=== PATIENT | female | born 1960 | race American Indian/Alaskan Native ===

== ENCOUNTER 2022-02-23 05:57 | Emergency (ER) | payer SELFPAY ==
[2022-02-23 07:29] LABS: Bilirubin,Urine NEG (Negative); Blood,Urine NEG (Negative); Color,Urine Yellow (Yellow); Protein,Urine <15 mg/dL mg/dL (Negative); Urobilinogen,Urine < 2.0 mg/dL (<2.0)
[2022-02-23 07:42] LABS: Basophils # (Auto) 0.1 K/mm3 (0.0-0.1); Eosinophils # (Auto) 0.1 K/mm3 (0.0-0.4); Eosinophils % (Auto) 0.8 % (0.0-4.3); Hematocrit 41.4 % (30.3-42.9); Hemoglobin 13.9 gm/dl (10.1-14.3); Lymphocytes # (Auto) 1.2 K/mm3 (1.2-5.4); Lymphocytes % (Auto) 19.1 % (13.4-35.0); Mean Corpuscular HGB Conc 34 % (30-34); Mean Corpuscular Volume 91 fl (79-97); Monocytes # (Auto) 0.7 K/mm3 (0.0-0.8); Monocytes % (Auto) 10.9 % (0.0-7.3); Platelet Count 370 K/mm3 (140-440); Red Blood Count 4.53 M/mm3 (3.65-5.03)
[2022-02-23 08:02] LABS: Alanine Aminotransferase 41 units/L (7-56); Albumin 4.7 g/dL (3.9-5); Blood Urea Nitrogen 13 mg/dL (7-17); Calcium 9.5 mg/dL (8.4-10.2); Hemolysis Index 9
[2022-02-23 08:23] LABS: BUN/Creatinine Ratio 19
--- NOTE | 2022-02-23 10:10 | Emergency Department Report ---
ED Abdominal Pain HPI - General Chief Complaint: Abdominal Pain Stated Complaint: ABDOMINAL PAIN Time Seen by Provider: 02/23/22 09:04 Source: patient Mode of arrival: Stretcher Limitations: No Limitations - History of Present Illness Initial Comments: 61-year-old female who presents with diffuse abdominal pain that started 2 days ago progressively getting worse. Abdominal pain is associated with nonbloody diarrhea for the same amount of time. Diarrhea started after eating home grilled chicken by patient's son 2 days ago. Diarrhea was described as being large. Patient also reports some nausea and bloody emesis this morning. No fever or chills reported. No other modifying or associated factors reported. MD Complaint: abdominal pain Severity scale (0 -10): 6 - Related Data Previous Rx's Medication Instructions Recorded Last Taken Type Omeprazole Magnesium [PriLOSEC Otc] 20 mg PO BID 30 Days #60 tab 02/23/22 Unknown Rx Ondansetron [Zofran Odt] 4 mg PO Q8HR 5 Days #15 tab.rapdis 02/23/22 Unknown Rx Allergies Allergy/AdvReac Type Severity Reaction Status Date / Time acetaminophen [From Tylenol] Allergy Itching Verified 02/23/22 06:43 latex Allergy Itching Verified 02/23/22 06:42 NSAIDS (Non-Steroidal Allergy Hives Verified 02/23/22 06:42 Anti-Inflamma ED Review of Systems ROS: Stated complaint: ABDOMINAL PAIN Other details as noted in HPI Comment: All other systems reviewed and negative Gastrointestinal: abdominal pain, nausea, diarrhea. denies: vomiting ED Past Medical Hx - Past Medical History Previous Medical History?: Yes Hx Hypertension: Yes Additional medical history: Neuropathy - Surgical History Past Surgical History?: No - Social History Smoking Status: Never Smoker Substance Use Type: None - Medications Home Medications: Home Medications Medication Instructions Recorded Confirmed Last Taken Type Omeprazole Magnesium [PriLOSEC Otc] 20 mg PO BID 30 Days #60 tab 02/23/22 Unknown Rx Ondansetron [Zofran Odt] 4 mg PO Q8HR 5 Days #15 tab.rapdis 02/23/22 Unknown Rx ED Physical Exam - General Limitations: No Limitations - Head Head exam: Present: normal inspection - Eye Eye exam: Present: normal appearance Pupils: Present: normal accommodation - ENT ENT exam: Present: normal exam, normal orophraynx, mucous membranes moist - Neck Neck exam: Present: normal inspection, full ROM - Respiratory Respiratory exam: Present: normal lung sounds bilaterally. Absent: respiratory distress, accessory muscle use - Cardiovascular Cardiovascular Exam: Present: regular rate, normal rhythm, normal heart sounds - GI/Abdominal GI/Abdominal exam: Present: soft, tenderness (Diffuse), normal bowel sounds. Absent: distended - Extremities Exam Extremities exam: Present: normal inspection, full ROM, normal capillary refill. Absent: tenderness, pedal edema - Back Exam Back exam: Present: normal inspection. Absent: tenderness - Neurological Exam Neurological exam: Present: alert, oriented X3 - Psychiatric Psychiatric exam: Present: normal affect, normal mood - Skin Skin exam: Present: warm, intact ED Course Vital Signs 02/23/22 02/23/22 02/23/22 05:58 07:53 08:01 Temperature 97.2 F L Pulse Rate 95 H 97 H Respiratory 18 18 Rate Blood Pressure 159/90 126/72 Blood Pressure 133/71 [Left] O2 Sat by Pulse 98 97 96 Oximetry 02/23/22 02/23/22 02/23/22 08:15 08:31 08:45 Temperature Pulse Rate Respiratory Rate Blood Pressure 126/72 115/74 123/64 Blood Pressure [Left] O2 Sat by Pulse 97 97 98 Oximetry 02/23/22 02/23/22 02/23/22 09:01 09:15 09:31 Temperature Pulse Rate Respiratory Rate Blood Pressure 127/76 127/76 128/77 Blood Pressure [Left] O2 Sat by Pulse 97 97 95 Oximetry 02/23/22 02/23/22 02/23/22 09:45 10:01 10:15 Temperature Pulse Rate Respiratory Rate Blood Pressure 128/77 133/91 133/91 Blood Pressure [Left] O2 Sat by Pulse 98 100 98 Oximetry 02/23/22 02/23/22 02/23/22 10:41 10:45 11:01 Temperature Pulse Rate 77 Respiratory 16 Rate Blood Pressure 141/83 141/83 131/70 Blood Pressure [Left] O2 Sat by Pulse 96 97 91 Oximetry - Reevaluation(s) Reevaluation #1: 02/23/22 10:09 here with diffuse abdominal pain with diarrhea and non blood emesis -- this is likely gastroenteritis -- so will other ivf ns 1L bolus with routine acute abdominal labs to rule out infectious process or electrolytes abnormality-- Reevaluation #2: 02/23/22 12:06 Patient report feeling much better --lab reviewed to be unremarkable--with CT scan negative for any acute findings so this is likely gastroenteritis so we will discharge patient home on Zofran, Prilosec, and close follow-up with her primary doctor and warning to return if symptoms worsen. ED Medical Decision Making - Lab Data Result diagrams: 02/23/22 07:07 02/23/22 07:07 Critical care attestation.: If time is entered above; I have spent that time in minutes in the direct care of this critically ill patient, excluding procedure time. ED Disposition Clinical Impression: Gastroenteritis Abdominal pain Qualifiers: Abdominal location: generalized Qualified Code(s): R10.84 - Generalized abdominal pain Disposition: HOME / SELF CARE / HOMELESS Is pt being admited?: No Does the pt Need Aspirin: No Condition: Stable Instructions: Abdominal Pain (ED), Abdominal Pain, Adult, [id number], Food Choices to Help Relieve Diarrhea, Adult Additional Instructions: Increase your daily fluid to help you hydration Take your new medication as prescribed Call and follow up with your doctor in the next 3-5 days for progress Call or return to ED if your symptoms worsen Prescriptions: Omeprazole Magnesium [PriLOSEC Otc] 20 mg PO BID 30 Days #60 tab Ondansetron [Zofran Odt] 4 mg PO Q8HR 5 Days #15 tab.ovidio Referrals: PRIMARY CARE, [Primary Care Provider] - 3-5 Days Time of Disposition: 12:11
[2022-02-23] MEDS ORDERED: ONDANSETRON 4 MG/2 ML INJ IV ONE (10:11)
[2022-02-23] MEDS ORDERED: SODIUM CHLORIDE 0.9% 1000 ML 1,000 ML IV ONE (10:11)
[2022-02-23] MEDS ORDERED: diphenhydrAMINE 50 MG/ML VIAL IV ONE (10:11)
[2022-02-23] MEDS ORDERED: MORPHINE 2 MG/1 ML INJ IV ONE (10:11)
[2022-02-23] MEDS ORDERED: SODIUM CHLORIDE 0.9% 1000 ML 1,000 ML ONE (10:12)
[2022-02-23] MEDS ORDERED: MORPHINE 2 MG/1 ML INJ ONE (10:12)
[2022-02-23] MEDS ORDERED: ONDANSETRON 4 MG/2 ML INJ ONE (10:13)
--- NOTE | 2022-02-23 10:53 | Cat Scan Report ---
CT ABDOMEN AND PELVIS WITHOUT CONTRAST INDICATION / CLINICAL INFORMATION: abd pain. TECHNIQUE: Axial CT images were obtained through the abdomen and pelvis without IV contrast. All CT scans at this location are performed using CT dose reduction for ALARA by means of automated exposure control. COMPARISON: None available. FINDINGS: LOWER CHEST: No significant abnormality. AORTA / ARTERIES: Mild atherosclerotic calcification without acute abnormality. IVC / VEINS: No significant abnormality. LYMPH NODES: No significant adenopathy. COLON: No significant abnormality. APPENDIX: No significant abnormality. STOMACH / SMALL BOWEL: No significant abnormality. PERITONEUM: No free fluid. No free air. No fluid collection. LIVER: No significant abnormality. GALLBLADDER: No significant abnormality. BILE DUCTS: No significant abnormality. PANCREAS: No significant abnormality. SPLEEN: No significant abnormality. ADRENALS: No significant abnormality. RIGHT KIDNEY / URETER: No significant abnormality. LEFT KIDNEY / URETER: No significant abnormality. URINARY BLADDER: No significant abnormality. Several phleboliths within the pelvis. REPRODUCTIVE ORGANS: No significant abnormality. SKELETAL SYSTEM: Scattered degeneration. ADDITIONAL FINDINGS: None. IMPRESSION: 1. No CT findings to explain symptomatology. Signer Name: Brian Miller DO Signed: 02/23/2022 10:48 AM Workstation Name: [id number]
[2022-02-23 12:47] VITALS: BP 121/61
== END 2022-02-23 12:46 | disposition home or self-care (01) ==
LOC: ED 05:57
DX: K52.9 Noninfective gastroenteritis and colitis, unspecified (principal); R10.84 Generalized abdominal pain; I10 Essential (primary) hypertension; G62.9 Polyneuropathy, unspecified; Z88.6 Allergy status to analgesic agent; Z91.040 Latex allergy status
CPT/HCPCS: 36415; 74176; 80053; 81001; 83690; 85025; 96361; 96374; 96375; 99284; J1200; J2270; J2405; J7030

== ENCOUNTER 2022-04-07 09:37 | Emergency (ER) | payer SELFPAY ==
[2022-04-07] MEDS ORDERED: SODIUM CHLORIDE 0.9% 1000 ML 1,000 ML IV ONE (11:22)
[2022-04-07] MEDS ORDERED: ONDANSETRON 4 MG/2 ML INJ IV ONE (11:22)
--- NOTE | 2022-04-07 11:23 | Emergency Department Report ---
ED Abdominal Pain HPI - General Chief Complaint: Chest Pain Stated Complaint: COVID POSITIVE/CHEST PAIN Time Seen by Provider: 04/07/22 11:16 Source: patient, EMS Mode of arrival: Stretcher Limitations: No Limitations - History of Present Illness Initial Comments: Patient is a 61-year-old female with history of hypertension, gout and peripheral neuropathy presenting with complaint of nausea vomiting and diarrhea beginning 3 days ago. States she recently tested positive for COVID. She does not have history of diabetes. States she has been unable to keep anything down. She reports onset of cramping central chest discomfort yesterday. Severity scale (0 -10): 4 - Related Data Previous Rx's Medication Instructions Recorded Last Taken Type Omeprazole Magnesium [PriLOSEC Otc] 20 mg PO BID 30 Days #60 tab 02/23/22 Unknown Rx Ondansetron [Zofran Odt] 4 mg PO Q8HR 5 Days #15 tab.rapdis 02/23/22 Unknown Rx Allergies Allergy/AdvReac Type Severity Reaction Status Date / Time acetaminophen [From Tylenol] Allergy Itching Verified 04/07/22 09:52 latex Allergy Itching Verified 04/07/22 09:52 NSAIDS (Non-Steroidal Allergy Hives Verified 04/07/22 09:52 Anti-Inflamma ED Review of Systems ROS: Stated complaint: COVID POSITIVE/CHEST PAIN Other details as noted in HPI Constitutional: denies: chills, fever Respiratory: denies: cough, shortness of breath, wheezing Cardiovascular: chest pain Gastrointestinal: nausea, vomiting, diarrhea Genitourinary: denies: urgency, dysuria, discharge Musculoskeletal: denies: back pain, joint swelling, arthralgia Skin: denies: rash, lesions Neurological: denies: headache, weakness, paresthesias Psychiatric: anxiety Hematological/Lymphatic: denies: easy bleeding, easy bruising ED Past Medical Hx - Past Medical History Hx Hypertension: Yes Additional medical history: Neuropathy - Social History Smoking Status: Never Smoker Substance Use Type: None - Medications Home Medications: Home Medications Medication Instructions Recorded Confirmed Last Taken Type Omeprazole Magnesium [PriLOSEC Otc] 20 mg PO BID 30 Days #60 tab 02/23/22 Unknown Rx Ondansetron [Zofran Odt] 4 mg PO Q8HR 5 Days #15 tab.rapdis 02/23/22 Unknown Rx ED Physical Exam - General Limitations: No Limitations General appearance: alert, in no apparent distress - Head Head exam: Present: atraumatic, normocephalic - Respiratory Respiratory exam: Present: normal lung sounds bilaterally. Absent: respiratory distress - Cardiovascular Cardiovascular Exam: Present: normal rhythm, tachycardia, normal heart sounds - GI/Abdominal GI/Abdominal exam: Present: soft. Absent: distended, tenderness - Rectal Rectal exam: Present: deferred - Neurological Exam Neurological exam: Present: alert, oriented X3 - Psychiatric Psychiatric exam: Present: normal affect, normal mood - Skin Skin exam: Present: warm, dry, intact, normal color ED Course Vital Signs 04/07/22 04/07/22 09:37 11:32 Temperature 98.7 F Pulse Rate 111 H 92 H Respiratory 18 20 Rate Blood Pressure 150/92 151/78 [Left] O2 Sat by Pulse 97 96 Oximetry ED Medical Decision Making - Lab Data Result diagrams: 04/07/22 14:57 04/07/22 14:57 - EKG Data -: EKG Interpreted by Tn EKG shows normal: sinus rhythm Rate: tachycardia - EKG Data Interpretation: nonspecific ST-T wave esperanza 04/07/22 11:25 Sinus tach with biatrial enlargement. Ventricular rate 106. - Medical Decision Making Given history of very low suspicion for ACS. Patient is also allergic to NSAIDs therefore we will hold. CBC, CMP and troponin are unremarkable. Patient given normal saline bolus along with IV Zofran. On reassessment states her symptoms are improved. She is stable for discharge home with return precautions. Critical care attestation.: If time is entered above; I have spent that time in minutes in the direct care of this critically ill patient, excluding procedure time. ED Disposition Clinical Impression: Gastroenteritis due to COVID-19 virus Disposition: 01 HOME / SELF CARE / HOMELESS Is pt being admited?: No Condition: Stable Instructions: Viral Gastroenteritis, Adult Referrals: PRIMARY CARE, [Primary Care Provider] - 3-5 Days Time of Disposition: 17:52
--- NOTE | 2022-04-07 12:03 | XRay Report ---
CHEST 1 VIEW 04/07/2022 11:35 AM INDICATION / CLINICAL INFORMATION: Chest Pain. COMPARISON: None available. FINDINGS: SUPPORT DEVICES: None. HEART / MEDIASTINUM: No significant abnormality. LUNGS / PLEURA: No significant pulmonary or pleural abnormality. No pneumothorax. ADDITIONAL FINDINGS: No significant additional findings. IMPRESSION: No acute abnormality. Signer Name: Sumanth Ventura MD Signed: 04/07/2022 11:59 AM Workstation Name: [email or web address]
[2022-04-07 15:53] LABS: BUN/Creatinine Ratio 10; Blood Urea Nitrogen 6 mg/dL (7-17); Calcium 8.5 mg/dL (8.4-10.2)
[2022-04-07 15:54] LABS: Alanine Aminotransferase 7 units/L (7-56); Albumin 2.8 g/dL (3.9-5); Hematocrit 41.4 % (30.3-42.9); Hemolysis Index 13; Mean Corpuscular HGB Conc 34 % (30-34); Mean Corpuscular Volume 90 fl (79-97); Platelet Count 304 K/mm3 (140-440); Red Cell Distribution Width 12.8 % (13.2-15.2)
[2022-04-07 16:08] LABS: INR 0.88 (0.87-1.13)
[2022-04-07 16:09] LABS: Partial Thromboplastin Time 31.2 Sec. (24.2-36.6)
[2022-04-07 17:22] LABS: Band Neutrophils # (Manual) 0.1 K/mm3; Basophils % (Manual) 0 % (0.0-1.8); Eosinophils % (Manual) 0 % (0.0-4.3); Total Cells Counted 100
[2022-04-07 17:23] LABS: Platelet Estimate Consistent w Auto; RBC Morphology Normal
[2022-04-07 20:36] VITALS: BP 142/68
--- NOTE | 2022-04-08 18:05 | Electrocardiograph Report ---
[facility] Test Date: 2022-04-07 Test Time: 10:10:27 Pat Name: NICOLLE TORRE Department: Room: Gender: F Sales And Marketing Representative: FELIPA : 1960 Requested By: JOSE DOLAN Order Number: [id number] Reading MD: Ruiz Mcneil Measurements Intervals [place] Rate: 106 P: 76 IN: 155 QRS: 19 QRSD: 85 T: -88 QT: 305 QTc: 406 Interpretive Statements Sinus tachycardia Biatrial enlargement Nonspecific T abnormalities, diffuse leads No previous ECG available for comparison Electronically Signed On 04-08-2022 18:05:21 EDT by Ruiz Mcneil
== END 2022-04-07 20:36 | disposition home or self-care (01) ==
LOC: ED 09:37
DX: A08.39 Other viral enteritis (principal); B97.21 SARS-associated coronavirus as the cause of diseases classified elsewhere; I10 Essential (primary) hypertension; R79.1 Abnormal coagulation profile; Z79.899 Other long term (current) drug therapy; Z88.6 Allergy status to analgesic agent; Z91.040 Latex allergy status; Z91.09 Other allergy status, other than to drugs and biological substances
CPT/HCPCS: 36415; 71045; 80053; 83690; 84484; 85007; 85025; 85610; 85730; 93005; 96361; 96374; 99284; J2405; J7030